=== PATIENT | female | born 1960 | race Caucasian/White ===

== ENCOUNTER 2018-11-02 19:44 | Emergency (ER) | payer OTHER ==
[~2018-11-02] VITALS: Ht 154.9 cm; Wt 61.2 kg
[2018-11-02] MEDS ORDERED: Crutch1 EACH MISC (21:11)
[2018-11-02] MEDS ORDERED: Norco 5-325 Ta1 EACH PO (21:11)
== END 2018-11-02 21:18 | disposition home or self-care (01) ==
LOC: ER 19:44
DX: M25.562 Pain in left knee (principal); F41.9 Anxiety disorder, unspecified
CPT/HCPCS: 73564; 99283-25